=== PATIENT | female | born 1975 | race Two or more races ===

== ENCOUNTER 2016-10-20 08:46 | Emergency (ER) | payer MEDICAID ==
[~2016-10-20] VITALS: Ht 167.6 cm; Wt 91.7 kg
[2016-10-20 10:56] VITALS: BP 148/100
== END 2016-10-20 10:56 | disposition home or self-care (01) ==
LOC: ED 08:46
DX: J01.90 Acute sinusitis, unspecified (principal)
CPT/HCPCS: J1885

== ENCOUNTER 2017-04-26 09:18 | Emergency (ER) | payer MEDICAID ==
[~2017-04-26] VITALS: Ht 167.6 cm; Wt 90.5 kg
[2017-04-26 12:15] VITALS: BP 153/96
== END 2017-04-26 12:15 | disposition home or self-care (01) ==
LOC: ED 09:18
DX: S33.5XXA Sprain of ligaments of lumbar spine, initial encounter (principal); X58.XXXA Exposure to other specified factors, initial encounter; Y93.89 Activity, other specified; Y99.8 Other external cause status; Y92.89 Other specified places as the place of occurrence of the external cause
CPT/HCPCS: J1885

== ENCOUNTER 2017-08-27 16:26 | Emergency (ER) | payer MEDICAID ==
[~2017-08-27] VITALS: Ht 167.6 cm; Wt 92.5 kg
[2017-08-27 16:35] VITALS: Ht 167.6 cm; Wt 92.5 kg
[2017-08-27 18:24] VITALS: BP 142/95
== END 2017-08-27 18:24 | disposition home or self-care (01) ==
LOC: ED 16:26
DX: H66.91 Otitis media, unspecified, right ear (principal); I10 Essential (primary) hypertension

== ENCOUNTER 2018-07-07 14:11 | Emergency (ER) | payer MEDICAID ==
[~2018-07-07] VITALS: Ht 167.6 cm; Wt 95.3 kg
[2018-07-07 14:22] VITALS: Ht 167.6 cm; Wt 95.3 kg
[2018-07-07 17:09] VITALS: BP 182/116
== END 2018-07-07 17:09 | disposition home or self-care (01) ==
LOC: ED 14:11
DX: S63.502A Unspecified sprain of left wrist, initial encounter (principal); J45.909 Unspecified asthma, uncomplicated; I10 Essential (primary) hypertension; Z98.890 Other specified postprocedural states; W23.0XXA Caught, crushed, jammed, or pinched between moving objects, initial encounter; Y93.89 Activity, other specified; Y92.89 Other specified places as the place of occurrence of the external cause; Y99.8 Other external cause status

== ENCOUNTER 2019-04-19 21:00 | Emergency (ER) | payer MEDICAID ==
[~2019-04-19] VITALS: Ht 167.6 cm; Wt 89.8 kg
[2019-04-19 21:05] VITALS: Ht 167.6 cm; Wt 89.8 kg
[2019-04-19 23:34] VITALS: BP 131/93
== END 2019-04-19 23:34 | disposition home or self-care (01) ==
LOC: ED 21:00
DX: I10 Essential (primary) hypertension (principal); Z98.890 Other specified postprocedural states
CPT/HCPCS: J1885